=== PATIENT | female | born 1995 | race Caucasian/White ===

== ENCOUNTER 2023-04-27 04:00 | Inpatient (IN) ==
[2023-04-27 04:54] LABS: Amphetamines+Metham, Urine Neg (Neg); Barbiturates, Urine Neg (Neg); Benzodiazepine, Urine Neg (Neg); Cocaine, Urine Neg (Neg); MDMA (Ecstacy), Urine Neg (Neg); Methadone, Urine Neg (Neg); Opiate, Urine Neg (Neg); Phencyclidine, Urine Neg (Neg)
[2023-04-27] MEDS ORDERED: LIDOCAINE 1% LOCAL 20 ML VIAL INFIL PRN (05:09)
[2023-04-27] MEDS ORDERED: OXYTOCIN 30 UNITS/500 ML BAG IV PRN ×2 (05:09→06:13)
[2023-04-27] MEDS ORDERED: LACTATED RINGER'S 1,000 ML IV PRN (05:09)
--- NOTE | 2023-04-27 05:17 | History & Physical Report ---
Date of Service April 27, 2023 Assessment & Plan (1) 39 weeks gestation of : Plan: Continue to monitor outpatient, patient make cervical change, admit Admission labs ordered, including HIV, syphilis, hepatitis B and C GBS collected, no indication to treat for GBS unknown as no previous history of GBS sepsis in the If patient make cervical change, will change order to admission, and anticipate spontaneous vaginal delivery (2) No care in current : Plan: We will plan to consult case management in the morning (3) Marijuana use during : Plan: Urine tox on admission positive for marijuana History of Present Illness Primary Care Provider: NO PCP Patient is a 27-year-old at approximately 39 weeks, per patient, and she has received no care. Previously was in [place], but unable to tell us where she received care where she got ultrasounds. She is visiting her mom in town currently, was planning to have the baby in [place]. Contractions started this evening every 3 to 4 minutes, denies vaginal bleeding or leaking of fluid. Notes good movement. Denies headache, blurry vision, right upper quadrant epigastric pain. Otherwise feeli ng well Allergies Allergy/AdvReac Type Severity Reaction Status Date / Time No Known Allergies Allergy Unverified 04/27/23 04:26 Home Medications Medication Instructions Recorded Confirmed Type vits no.124-ferrous fum 1 tab PO DAILY 04/27/23 04/27/23 History 27 mg iron-folic acid 800 mcg tablet ( Vitamin) Patient History Medical History Seasonal allergies Social History Smoking Status: Current every day smoker Cigarettes Per Day: 3; Hx Alcohol Use: No Hx Substance Use: Yes Last Used Substance: Days (ago) Preferred Language: Nepalese Communication Ability: Effective [employer] Estate Legal Secretary Required: No Beliefs That Will Affect Care: None marital status: Single Current Living Situation: Family Current Living Situation Comment: Pt states she is living with her mother Other Information That Helps Us Care for You: No Feels Safe at Home: Yes Safety Concerns: Feels Safe At This Time Assistive Devices: Glasses OB History -0-2 x2, 1 term at 39 weeks, another was at 35 weeks per patient [employer] History Denies any history of HSV Review of Systems All systems reviewed & are unremarkable except as noted in HPI & below Physical Exam Constitutional: WD/WN, vitals as above Respiratory: normal respiratory effort, lungs clear to auscultation Cardiovascular: RRR, no murmur, no edema Gastrointestinal (Abdomen): normal bowel sounds, soft, nontender, no hepatosplenomegaly Gravid Genitourinary: heart tracing: Baseline 1 25-1 30, moderate variability, positive accelerations, no decelerations noted, currently category 1 tracing Tocometer: Irregular contractions GBS and gonorrhea chlamydia collected Ultrasound was obtained before cervical exam was performed, showed no placenta previa, baby was cephalic, estimated weight consistent with 39-week gestation, official report pending Cervix: /-, bag intact Results & Data Vital Signs (Past 12 Hours) Vital Signs Temp Pulse Resp BP 04/27/23 04:29 36.5 C 18 04/27/23 04:11 88 122/78 Laboratory Results Laboratory Results Urine Opiates Screen Neg (Neg) 04/27/23 04:27 Ur Methadone, Qual Neg (Neg) 04/27/23 04:27 Urine Barbiturates Neg (Neg) 04/27/23 04:27 Ur Phencyclidine (PCP) Neg (Neg) 04/27/23 04:27 U Amphetamin/Meth Scrn Neg (Neg) 04/27/23 04:27 MDMA (Ecstasy) Screen Neg (Neg) 04/27/23 04:27 U Benzodiazepines Scrn Neg (Neg) 04/27/23 04:27 Ur Cocaine Metabolite Neg (Neg) 04/27/23 04:27 U Marijuana (THC) Screen Pos (Neg) H 04/27/23 04:27
[2023-04-27 05:52] LABS: Hematocrit (blood only) 34.4 % (37.0-47.0); Hemoglobin 11.4 g/dl (12.0-16.0); Mean Corpuscular Hemoglobin 30.2 pg (25.0-34.0); Mean Corpuscular Hgb Conc 33.1 g/dL (32.0-36.0); Mean Platelet Volume 12.3 fL (9.4-12.4); Platelet Count 318 K/uL (130-400); RDW Coefficient of Variation 14.8 % (11.5-14.5); RDW Standard Deviation 49.1 fL (36.4-46.3); Red Blood Count 3.78 M/uL (4.20-5.40); White Blood Count 12.23 K/ul (4.8-10.8)
[2023-04-27 06:03] LABS: Albumin Globulin Ratio 0.9 (0.9-2); Albumin Level 3.3 gm/dl (3.4-5.0); BUN Creatinine Ratio 17.7 (10-20); Bilirubin,Total 0.2 mg/dl (0.2-1.0); Calcium 8.4 mg/dl (8.6-10.3); Creatinine Clr Calc Pharmacy 146.2 ml/min; Est GFR (African American) 144.2 ml/min; Est GFR (Non-African American) 124.4 ml/min; Globulin 3.5 gm/dl (2.5-4.0); Potassium 3.9 mmol/L (3.5-5.1); Total Protein 6.8 gm/dl (6.0-8.3)
[2023-04-27] MEDS ORDERED: VARICELLA VIRUS VACCINE LIVE VIAL SQ ONE (06:13)
[2023-04-27] MEDS ORDERED: MEASLES, MUMPS & RUBELLA VIRUS VIAL SQ ONE (06:13)
[2023-04-27] MEDS ORDERED: DIPHTHERIA/TETANUS/PERTUSSIS Vaccine (Tdap, Age 7+yrs) 0.5mL SYR/VL IM ONE (06:13)
[2023-04-27] MEDS ORDERED: BENZOCAINE 20% AER SPR 82.5 GM CAN EXT PRN (06:13)
[2023-04-27] MEDS ORDERED: ACETAMINOPHEN 325 MG TAB PO PRN (06:13)
[2023-04-27] MEDS ORDERED: HYDROCORTISONE ACETATE 25 MG SUPP PR PRN (06:13)
--- NOTE | 2023-04-27 06:16 | Delivery Summary ---
Vaginal Delivery Summary Date of Service April 27, 2023 Vaginal Delivery Summary Delivery Note Patient was yemi regularly, and was 4 cm on first cervical exam. She called out to nursing feeling like she had a push and was found to be 8 cm, in which I did artificial rupture of membranes and patient was 8/90/-1. Patient called out several minutes later, desiring to push. She was found to be complete. Delivery Summary: Patient was placed in the dorsal lithotomy position. She was prepped and draped in the usual sterile fashion. Upon maternal pushing the head was delivered atraumatically followed by the anterior shoulders, posterior shoulders then the remainder of the infants body. The infant was immediately placed on mother's abdomen, dried and stimulated. The cord was clamped x2 and baby was handed off to the waiting nursing staff. The infants mouth and nose were bulb suctioned by nursing staff. A female infant was delivered at 0606h, weight pending, with APGARS of 8 at 1 minute and 9 at 5 minutes. Cord blood gases were not obtained. The placenta delivered intact with three vessel cord.. Placenta was sent to pathology. Thirty units of Pitocin were added to the IV fluid and allowed to run freely. Uterine massage was performed until uterus was deemed firm. Upon inspection of the perineum, vagina and cervix were intact.Upon re-inspection the patient was hemostatic. Uterus again massaged and found to be firm. Needle and sponge counts were correct. Patient was stable and allowed to recover in L&D room. Infant was stable and remained in room with mother in the labor and delivery unit.
--- NOTE | 2023-04-27 06:31 | Ultrasound Report ---
Exam(s): US OB LIMITED EXAM: US , Limited CLINICAL HISTORY: No care. TECHNIQUE: Real-time limited ultrasound of the maternal uterus with image documentation. COMPARISON: No relevant prior studies available. FINDINGS: Fetus: Single living intrauterine gestation. Gestational age: SV gestational age 39 weeks 6 days. BEVERLY: Estimated date of delivery 04/28/2023. EFW: Estimated weight 3840 g (8 lbs. 7 oz.). HC: 34.5 cm. AC: 35.8 cm. FL: 7.8 cm right. Position: Cephalic presentation. Biometrics: heart tones of 119 bpm pain. Placenta: The anterior placenta is more heterogeneous than typical given the gestational age. Amniotic fluid: RIKKI is normal measuring 9.9 cm. IMPRESSION: 1. Single living intrauterine gestation. 2. The anterior placenta is more heterogeneous than typical given the gestational age. Electronically signed by: Юлия Flores MD 04/27/23 06:30 AM
[2023-04-27] MEDS: IBUPROFEN 600 MG TAB PO PRN ×2 (10:17→19:31)
[2023-04-27] MEDS: DOCUSATE SODIUM 100 MG CAP PO SCH ×2 (10:21→21:32)
[2023-04-27] MEDS: PRENATAL VITAMIN 1 TAB PO SCH (10:21)
[2023-04-27] MEDS: FERROUS SULFATE 325 MG TAB PO SCH (10:21)
[2023-04-27 13:11] LABS: Chlam trach RNA(Genit,Ureth,Ur Not Detected (NotDetected); GC(Neis gon)RNA(Genit,Ureth,Ur Not Detected (NotDetected)
[2023-04-27 17:01] LABS: Trichomonas vag RNA GenitalFem Not Detected (NotDetected)
[2023-04-28 06:56] LABS: Hematocrit (blood only) 35.7 % (37.0-47.0); Hemoglobin 12.2 g/dl (12.0-16.0); Mean Corpuscular Hemoglobin 30.4 pg (25.0-34.0); Mean Corpuscular Hgb Conc 34.2 g/dL (32.0-36.0); Mean Platelet Volume 12.4 fL (9.4-12.4); Platelet Count 327 K/uL (130-400); RDW Coefficient of Variation 14.9 % (11.5-14.5); RDW Standard Deviation 48.6 fL (36.4-46.3); Red Blood Count 4.01 M/uL (4.20-5.40); White Blood Count 15.46 K/ul (4.8-10.8)
[2023-04-28] MEDS: DOCUSATE SODIUM 100 MG CAP PO SCH ×2 (07:48→20:01)
[2023-04-28] MEDS: PRENATAL VITAMIN 1 TAB PO SCH (07:48)
[2023-04-28] MEDS: FERROUS SULFATE 325 MG TAB PO SCH (07:48)
--- NOTE | 2023-04-28 08:13 | Obstetrical Progress Note ---
Date of Service April 28, 2023 Assessment & Plan (1) 39 weeks gestation of : Continue routine care Plan to discharge home tomorrow (2) No care in current : (3) Marijuana use during : Urine tox on admission positive for marijuana Subjective Ambulation: ambulating normally Voiding: no voiding problems Passing Gas:: Yes Diet Tolerance:: regular diet Lochia:: Small Doing well, no complaints at this time Physical Exam Constitutional WD/WN, vitals as above Respiratory normal respiratory effort, lungs clear to auscultation Cardiovascular RRR, no murmur, no edema Gastrointestinal (Abdomen) normal bowel sounds, soft, nontender, no hepatosplenomegaly Results & Data Vital Signs (Past 12 Hours) Vital Signs Temp Pulse Resp BP Pulse Ox O2 Del Method 04/28/23 07:25 36.4 C L 81 16 104/70 99 Room Air 04/28/23 03:16 36.5 C 67 18 104/66 98 Room Air 04/27/23 23:00 36.4 C L 60 20 113/74 99 Room Air Laboratory Results Laboratory Results WBC 15.46 K/ul (4.8-10.8) H 04/28/23 06:31 RBC 4.01 M/uL (4.20-5.40) L 04/28/23 06:31 Hgb 12.2 g/dl (12.0-16.0) 04/28/23 06:31 Hct 35.7 % (37.0-47.0) L 04/28/23 06:31 MCV 89.0 fL (80.0-100.0) 04/28/23 06:31 MCH 30.4 pg (25.0-34.0) 04/28/23 06:31 MCHC 34.2 g/dL (32.0-36.0) 04/28/23 06:31 RDW Std Deviation 48.6 fL (36.4-46.3) H 04/28/23 06:31 RDW Coeff of Edwin 14.9 % (11.5-14.5) H 04/28/23 06:31 Plt Count 327 K/uL (130-400) 04/28/23 06:31 MPV 12.4 fL (9.4-12.4) 04/28/23 06:31 Sodium 134 mmol/L (136-145) L 04/27/23 05:25 Potassium 3.9 mmol/L (3.5-5.1) 04/27/23 05:25 Chloride 107 mmol/L (98-107) 04/27/23 05:25 Carbon Dioxide 21 mmol/L (21-32) 04/27/23 05:25 Anion Gap 6 (3-11) 04/27/23 05:25 BUN 11 mg/dl (6-23) 04/27/23 05:25 Creatinine 0.62 mg/dl (0.6-1.2) 04/27/23 05:25 Est Cr Clr Drug Dosing 146.2 ml/min 04/27/23 05:25 Est GFR ( Amer) 144.2 ml/min 04/27/23 05:25 Est GFR (Non-Af Amer) 124.4 ml/min 04/27/23 05:25 BUN/Creatinine Ratio 17.7 (10-20) 04/27/23 05:25 Glucose 90 mg/dl (70-99(Fasting)) 04/27/23 05:25 Calcium 8.4 mg/dl (8.6-10.3) L 04/27/23 05:25 Total Bilirubin 0.2 mg/dl (0.2-1.0) 04/27/23 05:25 AST 11 U/L (13-39) L 04/27/23 05:25 ALT 7 U/L (7-52) 04/27/23 05:25 Alkaline Phosphatase 219 U/L (34-104) H 04/27/23 05:25 Total Protein 6.8 gm/dl (6.0-8.3) 04/27/23 05:25 Albumin 3.3 gm/dl (3.4-5.0) L 04/27/23 05:25 Globulin 3.5 gm/dl (2.5-4.0) 04/27/23 05:25 Albumin/Globulin Ratio 0.9 (0.9-2) 04/27/23 05:25 Urine Opiates Screen Neg (Neg) 04/27/23 04:27 Ur Methadone, Qual Neg (Neg) 04/27/23 04:27 Urine Barbiturates Neg (Neg) 04/27/23 04:27 Ur Phencyclidine (PCP) Neg (Neg) 04/27/23 04:27 U Amphetamin/Meth Scrn Neg (Neg) 04/27/23 04:27 MDMA (Ecstasy) Screen Neg (Neg) 04/27/23 04:27 U Benzodiazepines Scrn Neg (Neg) 04/27/23 04:27 Ur Cocaine Metabolite Neg (Neg) 04/27/23 04:27 U Marijuana (THC) Screen Pos (Neg) H 04/27/23 04:27 RPR Nonreactive (Nonreactive) 04/27/23 05:25 C.trachomatis RNA Not Detected (NotDetected) 04/27/23 Unknown N.gonorrhoeae RNA Not Detected (NotDetected) 04/27/23 Unknown SARS-CoV-2, RNA, NAAT NEGATIVE (NEGATIVE) 04/27/23 05:20 T.vaginalis (Amp Det) Not Detected (NotDetected) 04/27/23 Unknown Blood Type A Positive 04/27/23 05:25 Antibody Screen NEGATIVE 04/27/23 05:25 Impressions Obstetrics Ultrasound 04/27/23 04:19 Exam(s): US OB LIMITED EXAM: US , Limited CLINICAL HISTORY: No care. TECHNIQUE: Real-time limited ultrasound of the maternal uterus with image documentation. COMPARISON: No relevant prior studies available. FINDINGS: Fetus: Single living intrauterine gestation. Gestational age: SV gestational age 39 weeks 6 days. BEVERLY: Estimated date of delivery 04/28/2023. EFW: Estimated weight 3840 g (8 lbs. 7 oz.). HC: 34.5 cm. AC: 35.8 cm. FL: 7.8 cm right. Position: Cephalic presentation. Biometrics: heart tones of 119 bpm pain. Placenta: The anterior placenta is more heterogeneous than typical given the gestational age. Amniotic fluid: RIKKI is normal measuring 9.9 cm. IMPRESSION: 1. Single living intrauterine gestation. 2. The anterior placenta is more heterogeneous than typical given the gestational age. Electronically signed by: Юлия Flores MD 04/27/23 06:30 AM
[2023-04-28 10:27] LABS: HBSAG NON-REACTIVE (NON-REACTIVE)
[2023-04-28] MEDS: IBUPROFEN 600 MG TAB PO PRN (13:16)
[2023-04-28] MEDS ORDERED: bisacodyL 5 MG TABEC PO SCH (20:00)
[2023-04-29] MEDS ORDERED: bisacodyL 10 MG SUPP PR PRN (06:13)
[2023-04-29 07:01] LABS: Hemoglobin 12.2 g/dl (12.0-16.0)
[2023-04-29] MEDS: FERROUS SULFATE 325 MG TAB PO SCH (08:23)
[2023-04-29] MEDS: DOCUSATE SODIUM 100 MG CAP PO SCH (08:23)
[2023-04-29] MEDS: PRENATAL VITAMIN 1 TAB PO SCH (08:23)
--- NOTE | 2023-04-29 10:00 | Obstetrical Progress Note ---
Date of Service April 29, 2023 Assessment & Plan (1) Normal course: PPD #2 s/p marijuana use Pt doing well D/C home with instructions Subjective Ambulation: ambulating normally Voiding: no voiding problems Passing Gas:: Yes Diet Tolerance:: regular diet Lochia:: Small Feeding Type:: breast feeding Review of Systems All systems reviewed & are unremarkable except as noted in HPI & below Physical Exam Constitutional WD/WN, vitals as above well developed and well nourished Eyes PERRL, conjunctivae normal, anicteric sclerae Neck trachea midline, no thyromegaly Respiratory normal respiratory effort, lungs clear to auscultation Auscultation: no crackles, no rales and no wheezes Cardiovascular RRR, no murmur, no edema Gastrointestinal (Abdomen) normal bowel sounds, soft, nontender, no hepatosplenomegaly Uterus is below umbilicus Musculoskeletal no cyanosis or clubbing, extremities motor strength 5/5 Skin no rashes, warm and dry Neurologic patellar DTR's 2+ bilat, sensation intact Psychiatric A+Ox3, euthymic affect Genitourinary normal external appearance Results & Data Vital Signs (Past 12 Hours) Vital Signs Temp Pulse Pulse Resp BP Pulse Ox O2 Del Method 04/29/23 08:15 36.8 C 84 16 112/76 98 Room Air 04/29/23 00:00 36.7 C 65 16 105/65 98 Room Air
[2023-04-29 14:37] LABS: Marijuana Quant, GCMS Urine 1446 ng/mL (<5)
== END 2023-04-29 11:00 | disposition home or self-care (01) | DRG 807 ==
LOC: OPB 04:00 → 4S1 04:08 → 4E2 09:40